=== PATIENT | male | born 1980 ===

== ENCOUNTER 2016-08-09 19:16 | Observation (INO) ==
--- NOTE | 2016-08-09 19:34 | Emergency Department Note ---
Mariana Denson Hilary, am scribing for, and in the presence of, Veto Frausto MD 19:29. Jett Denson Robert M, MD, personally performed the services described in this documentation, ascribed by Glenis Peña in my presence, and it is both accurate and complete 934 . Arrival - Arrival Chief Complaint: Abdominal / Flank Pain Stated Complaint: appendicitis ED Nursing Triage Note: Patient to ED via EMS from [facility] ED with c/o appendicitis with RLQ ABD pain along with N/V that started at 0300 this morning. Patient was has elevated WBC at 17.7. Mode of Arrival: Stretcher Limitations: No Limitations Source: Patient, RN Notes Reviewed - History of Present Illness HPI Narrative: Pt is a 35 y/o male brought into the ED via EMS from [facility] for evaluation of a possible appendicitis with c/o abdominal pain. Pt states his pain started around 0300 and gradually worsened. He called EMS around 1000 because the pain got so bad. He confirms the pain is over his Right lower quadrant and nausea but denies vomiting. No other complaints or problems stated in the ED. Onset (ago): hour(s) Consistency: constant Severity: severe Severity scale (1-10): 5 Quality: stabbing Allergies/Adverse Reactions: Allergies Allergy/AdvReac Type Severity Reaction Status Date / Time No Known Allergies Allergy Unverified 08/09/16 19:23 Home Medications: Home Medications Medication Instructions Recorded Confirmed Type No Known Home Medications [No 08/09/16 08/09/16 History Known Home Medications] Review of System - Review of System 12 point system: reviewed and no additional remarkable complaints except as stated - Review of System Constitutional: Absent: fever Gastrointestinal: Present: abdominal pain, nausea. Absent: vomiting Medical,Surgical,& Family Hx - Surgical History Orthopedic Surgeries: Surgical HX of;: Orthopedic Surgery (knee surgery) - Social History Smoking Status: Smoker, status unknown Frequency of Alcohol Use: Occasionally Type of Drug Use: None Exam Vital Signs: Vital Signs Temperature 98.2 F 08/09/16 19:16 Pulse Rate 64 08/09/16 20:05 Respiratory Rate 16 08/09/16 20:05 Blood Pressure 116/76 08/09/16 20:05 O2 Sat by Pulse Oximetry 97 08/09/16 20:05 - General General appearance: alert, in no apparent distress - Head Head exam: Present: atraumatic, normocephalic - Eye Eye exam: Present: normal appearance, PERRL, EOMI - ENT ENT exam: Present: mucous membranes moist, TM's normal bilaterally. Absent: mucous membranes dry - Neck Neck exam: Present: full ROM, trachea midline. Absent: tenderness - Chest Chest inspection: Present: symmetric chest wall rise. Absent: tenderness - Respiratory Respiratory exam: Present: normal lung sounds bilaterally. Absent: respiratory distress - Cardiovascular Cardiovascular exam: Present: regular rate, normal rhythm, normal heart sounds. Absent: murmur, rubs, gallop - Abdominal Exam Abdominal exam: Present: soft, tenderness (RLQ), guarding, normal bowel sounds, tenderness at McBurney's Point. Absent: distention - Extremities Exam Extremities exam: Present: full ROM. Absent: tenderness - Back Exam Back exam: Present: full ROM. Absent: tenderness - Neurological Exam Neurological exam: Present: alert, oriented X3, CN II-XII intact. Absent: motor sensory deficit - Psychiatric Psychiatric exam: Present: normal affect, normal mood - Skin Skin exam: Present: warm, dry, intact, normal color. Absent: rash Course - Consultations Consultation #1: Dr. Julio Cesar Lee is here to see the patient. Time: 19:34 Disposition Clinical Impression: Acute appendicitis Case discussed with: patient, patient's family Disposition: Still a Patient Condition: Stable Time of Disposition: 19:34
[2016-08-09] MEDS ORDERED: PIPERACILLIN/TAZOBACTAM 3,375 MG in SODIUM CHLORIDE 0.9% 100 ML IV STA (19:40)
--- NOTE | 2016-08-09 19:43 | General Surg History&Physical ---
Assessment and Plan (1) Acute appendicitis Status: Acute Assessment and plan: This patient has acute nonperforated appendicitis with a CT proven. I recommended admission for IV antibiotics and laparoscopic appendectomy tomorrow. This has been discussed in detail with the patient and I also did discuss the possibility of medical management. The patient would like to proceed with the operation. This will be scheduled for tomorrow. I discussed the risks, benefits, and alternatives of the operation, and the expected outcomes have been reviewed. Current Visit: Yes History of Present Illness Chief complaint: Abdominal pain History of present illness: Mr. Baptiste is a 35 year old male who developed acute onset of right lower quadrant abdominal pain around 3 AM. He presented to the [facility] today where CT scan revealed acute appendicitis. He was transferred to [place] for management but his transfer was delayed by the EMS providers because they did not have the vehicles available to bring him here earlier. He appears comfortable but still has some tenderness and pain in the right lower quadrant. Home Medications Medication Instructions Recorded Confirmed Type No Known Home Medications [No 08/09/16 08/09/16 History Known Home Medications] Allergies Allergy/AdvReac Type Severity Reaction Status Date / Time No Known Allergies Allergy Unverified 08/09/16 19:23 Medical,Surgical,& Family Hx - Surgical History Orthopedic Surgeries: Surgical HX of;: Orthopedic Surgery (knee surgery) - Social History Smoking Status: Smoker, status unknown Frequency of Alcohol Use: Occasionally Type of Drug Use: None Exam - Constitutional Vitals: Period Temp Pulse Resp BP Sys/Brush Pulse Ox Last 24 Hr 98.2 F-98.2 F 88-88 16-16 121-121/75-75 100 General appearance: no acute distress, over weight - Head Head exam: Present: normal inspection, normocephalic - Eye Eye exam: Present: EOMI. Absent: scleral icterus Pupils: Present: JETT - ENT ENT exam: Present: normal exam Mouth exam: Present: normal external inspection, normal voice - Neck Neck exam: Present: normal inspection, trachea midline - Respiratory Respiratory exam: Present: clear to auscultation bilaterally. Absent: accessory muscle use, chest wall tenderness - Cardiovascular Cardiovascular exam: Present: RRR. Absent: systolic murmur, tachycardia - GI/Abdominal GI/Abdominal exam: Present: normal bowel sounds, tenderness (Patient is tender focally in the right lower quadrant. There is no diffuse peritonitis.), soft - Extremities Exam Extremities exam: Present: normal inspection, normal capillary refill - Back Exam Back exam: Present: normal inspection - Neurological Exam Neurological exam: Present: alert, oriented X3 Speech: Present: normal - Skin Skin exam: Present: normal color, warm - Constitutional Constitutional: Present: as per HPI - EENT Nose, mouth and throat: Present: as per HPI - Cardiovascular Cardiovascular: Present: as per HPI - Respiratory Respiratory: Present: as per HPI - Gastrointestinal Gastrointestinal: Present: as per HPI - Genitourinary Genitourinary: Present: as per HPI - Musculoskeletal Musculoskeletal: Present: as per HPI - Neurological Neurological: Present: as per HPI - Endocrine Endocrine: Present: as per HPI Hematologic/Lymphatic: Present: as per HPI Results - Diagnostic Findings Procedure: CT Abdomen and Pelvis: image reviewed by me, report reviewed by me ( Acute appendicitis nonperforated)
[2016-08-09] MEDS ORDERED: PIPERACILLIN/TAZOBACTAM 3,375 MG VIAL IV ONE (19:47)
[2016-08-09] MEDS ORDERED: SODIUM CHLORIDE 0.9% 100 ML IV ONE (19:48)
[2016-08-09] MEDS ORDERED: ONDANSETRON 4 MG/2 ML VIAL IV PRN (20:32)
[2016-08-09] MEDS ORDERED: HYDROmorphone 2 MG/1 ML VIAL IV PRN (20:32)
[2016-08-09] MEDS ORDERED: ACETAMINOPHEN 325 MG TABLET PO PRN (20:32)
[2016-08-09] MEDS ORDERED: PROMETHAZINE 25 MG/1 ML VIAL IM PRN (20:32)
[2016-08-09] MEDS: LACTATED RINGERS 1,000 ML IV SCH (23:54)
[2016-08-10] MEDS: LACTATED RINGERS 1,000 ML IV SCH (06:05)
[2016-08-10] MEDS ORDERED: BUPIVACAINE MPF 0.25% /EPI 30 ML VIAL ONE (06:47)
[2016-08-10] MEDS ORDERED: TISSUE ADHESIVE 1 EACH APPLICATOR TOP ONE (06:47)
[2016-08-10] MEDS ORDERED: LIDOCAINE 1%/EPI INJ 20 ML VIAL ONE (06:48)
--- NOTE | 2016-08-10 07:22 | General Surgery Progress Note ---
Assessment and Plan (1) Acute appendicitis Status: Acute Assessment and plan: Laparoscopic appendectomy today Current Visit: Yes Subjective Patient reports: Present: no new complaints, still having pain, afebrile Exam - Constitutional Vitals: Period Temp Pulse Resp BP Sys/Brush Pulse Ox Last 24 Hr 97.6 F-98.3 F 63-88 16-20 100-122/66-76 96-100 General appearance: no acute distress, over weight - Head Head exam: Present: normal inspection, normocephalic - Eye Eye exam: Present: EOMI Pupils: Present: JETT - ENT ENT exam: Present: normal exam Mouth exam: Present: normal external inspection, normal voice - Neck Neck exam: Present: normal inspection, trachea midline - Respiratory Respiratory exam: Present: clear to auscultation bilaterally. Absent: accessory muscle use, chest wall tenderness - Cardiovascular Cardiovascular exam: Present: RRR. Absent: systolic murmur, tachycardia - GI/Abdominal GI/Abdominal exam: Present: normal bowel sounds, tenderness (Focal tenderness in the right lower quadrant), soft - Extremities Exam Extremities exam: Present: normal inspection, normal capillary refill - Back Exam Back exam: Present: normal inspection - Neurological Exam Neurological exam: Present: alert, oriented X3 Speech: Present: normal - Skin Skin exam: Present: normal color, warm
[2016-08-10] MEDS ORDERED: PANTOPRAZOLE 40 MG TABLET PO SCH (09:00)
[2016-08-10] MEDS ORDERED: ONDANSETRON 4 MG/2 ML VIAL ONE ×2 (09:15→10:28)
[2016-08-10] MEDS ORDERED: SUCCINYLCHOLINE 200 MG/10 ML VIAL ONE (09:15)
[2016-08-10] MEDS ORDERED: PROPOFOL 200 MG/20 ML VIAL IV ONE (09:15)
[2016-08-10] MEDS ORDERED: ROCURONIUM 100 MG/10 ML VIAL IV ONE (09:15)
[2016-08-10] MEDS ORDERED: LIDOCAINE 2% 5 ML VIAL ONE (09:15)
[2016-08-10] MEDS ORDERED: HYDROmorphone 2 MG/1 ML VIAL ONE (10:28)
[2016-08-10] MEDS: HYDROmorphone 2 MG/1 ML VIAL IV PRN ×3 (10:31→10:41)
[2016-08-10] MEDS ORDERED: SEVOFLURANE 1 UNIT/15 MINUTE INH ONE (10:36)
[2016-08-10] MEDS ORDERED: fentaNYL 100 MCG/2 ML VIAL ONE (10:37)
[2016-08-10] MEDS ORDERED: LACTATED RINGERS 1,000 ML IV ONE (10:37)
[2016-08-10] MEDS ORDERED: MIDAZOLAM 2 MG/2 ML VIAL ONE (10:37)
--- NOTE | 2016-08-10 10:53 | Operative Note ---
Date of procedure: 08/10/16 Pre-op diagnosis: Acute appendicitis Post-op diagnosis: same Procedure: Preoperative diagnosis Acute appendicitis Postoperative diagnosis Same Procedures performed Laparoscopic appendectomy Findings Acute appendicitis nonperforated Blood loss 5 mL Anesthesia GETA Complications None apparent Specimen Appendix Indications Acute. I discussed the option of medical treatment with antibiotics alone with the patient in detail. I discussed the failure rate of 25% with antibiotics alone and the requirement to stay in the hospital for several days of antibiotics and observation. The patient decided to proceed with laparoscopic appendectomy. I discussed the risks, benefits, and alternatives of the operation with the patient, and the expected outcomes were reviewed. In particular, I discussed the risk of bleeding, infection, wound complications, bowel obstruction, and ureteral injury. The patient elects to proceed with the operation. Description of procedure The patient was taken to the operating room and transferred to the operating table in the supine position. Pressure points were padded and SCDs were placed to bilateral lower extremities. General endotracheal anesthesia was administered. The abdominal hair was clipped with electric clippers and the abdomen was prepped with chlorhexidine and draped sterilely. Preoperative antibiotics were administered, and a timeout was performed. The abdomen was entered in the supraumbilical location in the right paramedian position with a Veress needle. Local anesthetic was administered and a 12 mm skin incision was made with an 11 blade scalpel. Penetrating towel clips were used to grasp the abdominal wall skin and a Veress needle was used into the peritoneal cavity. [ Intra-peritoneal location was confirmed with a double click technique.] Aspiration was negative. Saline drop test confirmed intraperitoneal location. The abdomen was insufflated to 15 mmHg with initial insufflation pressure of 3 mmHg. The Veress needle was removed and a 12 mm trocar was placed bluntly. Diagnostic laparoscopy was then performed. There was no evidence of Veress needle or trocar injury. [] The patient was placed in Trendelenburg and left side rolled down position. Under direct visualization, and after local anesthetic was administered, 2 additional 5 mm trochars were placed in the suprapubic position in the left lower quadrant position. The bowel was then moved out of the right lower quadrant and the appendix was visualized. The appendix was acutely inflamed but nonperforated the appendix was grasped and retracted towards the patient's feet in a window in the appendiceal mesentery was created with [place] dissector. CHIO stapler was then used to transect the base of the appendix. The appendiceal mesentery was also divided using vascular staple loads. The right lower quadrant was focally suction irrigated. This was done until the effluent was clear. The appendix was placed in Endo Catch bag and removed through the 12 mm trocar site. The CO2 was then released from the abdomen and the trochars were removed. Skin incisions were closed with 4-0 Monocryl and sterile skin glue was applied. The patient was awakened from anesthesia and transferred to recovery. Postoperative plan Diet as tolerated Follow-up in 2 weeks Anesthesia: KAREL, local Surgeon / Physician: Julio Cesar Lee Estimated blood loss: none Specimens: other (appendix) Condition: stable Disposition: PACU Discharge Plan - Discharge Data Disposition: Disch To Home/Self Care Condition at Discharge: Stable Discharge Diet: advance to your usual diet Activity: no lifting Hygiene: may shower Weight Bearing at Discharge: weight bear as tolerated Driving: other (Do not drive or operate heavy machinery for at least 24 hours and after you are off of narcotic pain medications.) Contact your physician if you experience:: fever over 101, Difficulty voiding, Redness or swelling, Nausea/Vomiting, Shortness of breath, Bleeding, pain uncontrolled by pain medications Wound / Dressing Care Instructions: It is okay to shower. Do not scrub the incision aggressively or submerge it under water. - Discharge Medications New HYDROcodone/ACETAMIN 7.5-325 [[place] 7.5-325] 1 tablet PO Q4H PRN #30 tablet PRN Reason: Pain Moderate (4-7) - Follow Up or Referral Follow Up: Julio Cesar Lee MD [Physician] - 08/23/16 9:00 am - Forms/Instructions
--- NOTE | 2016-08-10 11:32 | Anesthesia Post-Op ---
Anesthesia Post OP - Post Ansesthetic Evaluation Patient seen in post op: Yes Resp: within normal limits CV: within normal limits Mental: within normal limits Temp: within normal limits [id number]: within normal limits Nausea and Vomiting: within normal limits Pain: within normal limits
[2016-08-10 14:29] VITALS: BP 117/72
[2016-08-13] MEDS ORDERED: PIPERACILLIN/TAZOBACTAM 3,375 MG in SODIUM CHLORIDE 0.9% 100 ML IV SCH (04:00)
--- NOTE | 2016-09-19 07:45 | Pathology Report from [facility] ---
[facility] [id number] PATIENT NAME : Iker Peguero ORDERING DR : Julio Cesar Lee MD CLINICAL HX: Acute appendicitis POST-OP DX: Same SPECIMEN INFO: Appendix GROSS DESCRIPTION: The specimen is received in formalin labeled with the patients name and consists of an appendix and attached appendiceal fat. The appendix measures 5.7 x 0.6 cm. The serosa is erythematous with a possible area of perforation present. The lumen contains focal areas of hemorrhagic material. No fecaliths identified. Reimbursement Liaison tissue submitted in one cassette. DIAGNOSIS FOR IKER PEGUERO: APPENDIX, APPENDECTOMY: Acute appendicitis. 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 COLLECTED DATE: 08/10/2016 [facility] [place]: 08/13/2016 ELECTRONICALLY SIGNED BY: Tori Hernandez M.D. 08/13/2016 - 13:11:44 [email or web address]
== END 2016-08-10 14:45 | disposition home or self-care (01) ==
LOC: EDBD → EDUNIT# → N.EDINP 19:16 → N.ED 19:16 → N.3E 21:03
PROVIDERS: ADMIT Surgery; ATTEND Surgery